=== PATIENT | female | born 1955 | race Two or more races ===

== ENCOUNTER 2020-06-02 01:30 | Emergency (ER) | payer MEDICARE, MEDICAID ==
[~2020-06-02] VITALS: Ht 160 cm; Wt 81.4 kg
[2020-06-02] MEDS ORDERED: ATOR40TA28 PO (01:54)
[2020-06-02] MEDS ORDERED: AMLO-257 PO (01:54)
[2020-06-02] MEDS ORDERED: ASPI-1450 PO (01:54)
[2020-06-02] MEDS ORDERED: ATEN-73 PO (01:54)
[2020-06-02] MEDS ORDERED: WARF2.5T38 PO (01:55)
[2020-06-02] MEDS ORDERED: EMPA1TAB21 PO (01:55)
[2020-06-02 01:56] LABS: GLUCOSE,POINT OF CARE 212 MG/DL (70-110)
[2020-06-02 02:12] LABS: BASOPHILS % (AUTO) 0.4 % (0.0-2.0); EOSINOPHILS % (AUTO) 2.8 % (1.0-6.0); HEMATOCRIT 37.9 % (36-46); HEMOGLOBIN 12.5 g/dL (12.0-16.0); LYMPHOCYTES # (AUTO) 1.2 K/uL (1.0-4.8); LYMPHOCYTES % (AUTO) 15.3 % (22.0-44.0); MEAN CORPUSCULAR HEMOGLOBIN 23.6 pg (26.0-34.0); MEAN CORPUSCULAR HGB CONC 32.9 G/dL (31.0-37.0); MEAN CORPUSCULAR VOLUME 72 fL (80-100); MONOCYTES # (AUTO) 0.5 K/uL (0.1-1.0); MONOCYTES % (AUTO) 6.2 % (2.0-9.0); NEUTROPHILS # (AUTO) 5.8 K/uL (1.8-7.7); NEUTROPHILS % (AUTO) 75.3 % (40.0-70.0); PLATELET COUNT (AUTO) 224 K/uL (150-450); RED BLOOD CELL COUNT(AUTO) 5.28 MIL/uL (4.00-5.20); RED CELL DISTRIBUTION WIDTH 16.8 % (11.5-14.5)
[2020-06-02 02:27] LABS: CREATININE 1.29 mg/dL (0.60-1.30); POTASSIUM 3.6 mmol/L (3.5-5.1)
[2020-06-02 02:35] LABS: ALBUMIN 3.4 g/dL (3.4-5.0); BILIRUBIN,TOTAL 0.4 mg/dL (0.1-1.0); MAGNESIUM 1.6 mg/dL (1.80-2.40); PHOSPHORUS 2.9 mg/dL (2.5-4.9); TOTAL PROTEIN, SERUM 7.1 g/dL (6.4-8.2)
[2020-06-02] MEDS ORDERED: MAGNESIUM SULFATE 1 GM in DEXTROSE 5%-WATER 50 ML IV ONE (03:00)
[2020-06-02 04:13] VITALS: BP 117/64
== END 2020-06-02 04:37 | disposition home or self-care (01) ==
LOC: EMS 01:34
DX: R20.2 Paresthesia of skin (principal); E11.9 Type 2 diabetes mellitus without complications; E78.00 Pure hypercholesterolemia, unspecified; I10 Essential (primary) hypertension
CPT/HCPCS: 70450; 80053; 82550; 82962; 83735; 83880; 84100; 84484; 85025; 93005; 96365; 99285; J3475; J7060